=== PATIENT | male | born 1945 | race African-American/Black ===

== ENCOUNTER 2018-06-16 03:25 | Emergency (ER) | payer OTHER ==
[~2018-06-16] VITALS: Ht 177.8 cm; Wt 109.0 kg
[~2018-06-16 03:25] MED LIST: ATEN-42; ATOR80TA; CLOP75TA16; HYDR25TA; LISI40TA4; LISINOPRIL; NOVALIN; NVLG73; PENT400T29; PLAVIX; SIMVASTATIN
[2018-06-16] MEDS ORDERED: DEXT 10% WATER 1,000 ML IV ONE (04:36)
[2018-06-16] MEDS ORDERED: DEXTROSE 50% WATER 50ML SYRINGE IV ONE (04:45)
[2018-06-16 05:00] LABS: BASOPHILS % 0.9 % (0.0-2.0); EOSINOPHILS % 1.5 % (0.0-5.0); HEMATOCRIT. 34.8 % (42.0-52.0); HEMOGLOBIN. 11.2 g/dL (14.0-18.0); LYMPHOCYTES % 12.5 % (20.0-50.0); MEAN CORPUSCULAR HEMOGLOBIN 31.4 pg (28.0-32.0); MEAN CORPUSCULAR VOLUME 97.8 fL (80.0-94.0); MEAN PLATELET VOLUME 8.3 fl (7.4-10.4); MONOCYTES % 7.8 % (2.0-8.0); NEUTROPHILS % 77.3 % (40.0-76.0); PLATELET 163 x1000/uL (130-400); RED BLOOD CELL COUNT 3.56 mill/uL (4.7-6.1); RED CELL DISTRIBUTION WIDTH 14.3 % (11.6-14.6)
[2018-06-16 05:24] LABS: PHOSPHORUS 3.5 mg/dL (2.5-4.9)
[2018-06-16 08:35] VITALS: BP 198/74
== END 2018-06-16 06:56 | disposition home or self-care (01) ==
LOC: ER 03:25
DX: E11.649 Type 2 diabetes mellitus with hypoglycemia without coma (principal); Z79.4 Long term (current) use of insulin
CPT/HCPCS: 36415; 80048; 82962; 83735; 84100; 96374; 99283

== ENCOUNTER 2019-05-11 21:52 | Emergency (ER) | payer OTHER ==
[~2019-05-11] VITALS: Ht 175.3 cm; Wt 109.0 kg
[~2019-05-11 21:52] MED LIST changes: -CLOP75TA16; +CLOP75TA4
[2019-05-11] MEDS ORDERED: DEXTROSE 50% WATER 50ML SYRINGE IV ONE (22:26)
[2019-05-11] MEDS: DEXTROSE 50% WATER 50ML SYRINGE IV ONE (23:02)
[2019-05-11] MEDS: SODIUM CHLORIDE 0.9% 1,000 ML IV ONE (23:11)
[2019-05-12 00:22] LABS: BASOPHILS % 0.7 % (0.0-2.0); EOSINOPHILS % 1.1 % (0.0-5.0); HEMATOCRIT. 37.5 % (42.0-52.0); HEMOGLOBIN. 12.4 g/dL (14.0-18.0); LYMPHOCYTES % 8.7 % (20.0-50.0); MEAN CORPUSCULAR HEMOGLOBIN 31.5 pg (28.0-32.0); MEAN CORPUSCULAR VOLUME 95.3 fL (80.0-94.0); MEAN PLATELET VOLUME 8.5 fl (7.4-10.4); NEUTROPHILS % 83.5 % (40.0-76.0); PLATELET 157 x1000/uL (130-400); RED BLOOD CELL COUNT 3.93 mill/uL (4.7-6.1)
[2019-05-12 00:31] LABS: CHLORIDE 109 mEq/L (98-107)
[2019-05-12 04:13] VITALS: BP 150/68
== END 2019-05-12 04:16 | disposition home or self-care (01) ==
LOC: ER 21:52
DX: E11.649 Type 2 diabetes mellitus with hypoglycemia without coma (principal); E78.00 Pure hypercholesterolemia, unspecified; I10 Essential (primary) hypertension; Z86.73 Personal history of transient ischemic attack (TIA), and cerebral infarction without residual deficits; Z79.4 Long term (current) use of insulin; Z79.899 Other long term (current) drug therapy
CPT/HCPCS: 36415; 71045; 80053; 82962; 83880; 84484; 85025; 93005; 96360; 96361; 99284; J7030

== ENCOUNTER 2021-05-13 06:41 | Emergency (ER) | payer OTHER ==
[~2021-05-13] VITALS: Ht 180.3 cm; Wt 82.0 kg
[~2021-05-13 06:41] MED LIST changes: +CLOP-31; -CLOP75TA4; +LISI40TA13; -LISI40TA4
[2021-05-13 09:51] LABS: HEMATOCRIT. 37.6 % (42.0-52.0); HEMOGLOBIN. 12.3 g/dL (14.0-18.0); MEAN CORPUSCULAR HEMOGLOBIN 31.3 pg (28.0-32.0); MEAN CORPUSCULAR VOLUME 95.6 fL (80.0-94.0); MEAN PLATELET VOLUME 8.4 fl (7.4-10.4); PLATELET 111 x1000/uL (130-400); RED BLOOD CELL COUNT 3.93 mill/uL (4.7-6.1); RED CELL DISTRIBUTION WIDTH 14.2 % (11.6-14.6)
[2021-05-13] MEDS ORDERED: ACETAMINOPHEN 325MG TABLET PO ONE (10:15)
[2021-05-13 10:52] LABS: CHLORIDE 109 mEq/L (98-107)
[2021-05-13 11:40] LABS: PLATELET ESTIMATE SLIGHTLY DECREASED
[2021-05-13] MEDS ORDERED: CEFTRIAXONE 1 G PREMIX 50 ML IV ONE (13:30)
[2021-05-13] MEDS ORDERED: AZITHROMYCIN 500 MG in DEXT 5% WATER 250 ML IV SCH (13:30)
[2021-05-13 15:04] VITALS: BP 152/77
== END 2021-05-13 16:15 | disposition short-term general hospital (02) ==
LOC: ER 06:41
DX: U07.1 COVID-19 (principal); N17.9 Acute kidney failure, unspecified; R53.1 Weakness; E78.00 Pure hypercholesterolemia, unspecified; I10 Essential (primary) hypertension; E11.9 Type 2 diabetes mellitus without complications; Z79.899 Other long term (current) drug therapy
CPT/HCPCS: 36415; 71045; 80053; 83880; 84484; 85025; 87426; 93005; 96365; 96366; 96368; 99285; J0456; J0696; J7060

== ENCOUNTER 2021-05-25 05:47 | Emergency (ER) | payer OTHER ==
[~2021-05-25] VITALS: Ht 177.8 cm; Wt 100.0 kg
[2021-05-25] MEDS ORDERED: SODIUM CHLORIDE 0.9% 1,000 ML IV ONE (07:30)
[2021-05-25 08:35] LABS: HEMATOCRIT. 35.3 % (42.0-52.0); HEMOGLOBIN. 11.7 g/dL (14.0-18.0); MEAN CORPUSCULAR HEMOGLOBIN 31.4 pg (28.0-32.0); MEAN CORPUSCULAR VOLUME 94.5 fL (80.0-94.0); MEAN PLATELET VOLUME 8.8 fl (7.4-10.4); PLATELET 164 x1000/uL (130-400); RED BLOOD CELL COUNT 3.74 mill/uL (4.7-6.1); RED CELL DISTRIBUTION WIDTH 13.9 % (11.6-14.6)
[2021-05-25 08:40] LABS: CHLORIDE 97 mEq/L (98-107)
[2021-05-25 08:47] LABS: BETA HYDROXYBUTYRATE 0.3 mMol/L (0.0-0.3)
[2021-05-25] MEDS ORDERED: INSULIN REGULAR (HUMULIN R) 300UNITS/3ML VIAL IV ONE (10:30)
[2021-05-25 10:32] LABS: PLATELET ESTIMATE NORMAL
[2021-05-25] MEDS ORDERED: NIFEDIPINE 10MG CAPSULE PO ONE (11:45)
[2021-05-25 12:01] LABS: CLARITY URINE CLEAR (CLEAR); COLOR URINE YELLOW (YELLOW); KETONES URINE NEGATIVE (NEGATIVE); LEUKOCYTE ESTERASE URINE 1+ (NEGATIVE); NITRITE URINE POSITIVE (NEGATIVE); OCCULT BLOOD URINE 1+ (NEGATIVE); PH URINE 5.5 (4.5-8.0); PROTEIN URINE 1+ (NEGATIVE); SPECIFIC GRAVITY URINE 1.014 (1.005-1.030); UROBILINOGEN URINE 0.2 E.U./dL (0.2-1.0)
[2021-05-25] MEDS ORDERED: CIPR-263 MT (13:50)
[2021-05-25] MEDS ORDERED: LEVOFLOXACIN 500MG TABLET PO ONE (14:00)
[2021-05-25 19:12] VITALS: BP 139/61
== END 2021-05-25 19:13 | disposition home or self-care (01) ==
LOC: ER 05:56
DX: R53.1 Weakness (principal); E11.9 Type 2 diabetes mellitus without complications; Z79.899 Other long term (current) drug therapy
CPT/HCPCS: 36415; 71045; 80053; 81003; 82010; 82962; 84484; 85025; 87077; 87086; 87186; 93005; 96361; 96374; 99285; J1815; J7030

== ENCOUNTER 2021-08-26 17:26 | Emergency (ER) | payer OTHER ==
[~2021-08-26] VITALS: Ht 175.3 cm; Wt 91.0 kg
[~2021-08-26 17:26] MED LIST changes: +CIPR-263 MT
[2021-08-26] MEDS ORDERED: MORPHINE SULFATE 4 MG/ML CPJ (NOT FOR IM USE) IV STA (17:55)
[2021-08-26] MEDS ORDERED: ONDANSETRON HCL 4MG/2ML INJ IV STA (17:55)
[2021-08-26] MEDS ORDERED: SODIUM CHLORIDE 0.9% 1,000 ML IV ONE (18:00)
[2021-08-26 18:28] LABS: BASOPHILS % 0.7 % (0.0-2.0); EOSINOPHILS % 2.9 % (0.0-5.0); HEMATOCRIT. 39.5 % (42.0-52.0); HEMOGLOBIN. 12.9 g/dL (14.0-18.0); LYMPHOCYTES % 18.2 % (20.0-50.0); MEAN CORPUSCULAR VOLUME 95.1 fL (80.0-94.0); MEAN PLATELET VOLUME 8.5 fl (7.4-10.4); MONOCYTES % 8.1 % (2.0-8.0); NEUTROPHILS % 70.1 % (40.0-76.0); PLATELET 177 x1000/uL (130-400); RED BLOOD CELL COUNT 4.16 mill/uL (4.7-6.1); RED CELL DISTRIBUTION WIDTH 13.8 % (11.6-14.6)
[2021-08-26 18:39] LABS: CHLORIDE 107 mEq/L (98-107)
[2021-08-26 18:40] LABS: PROTHROMBIN TIME 10.5 sec (9.6-11.0)
[2021-08-26] MEDS ORDERED: CLONIDINE 0.1MG TABLET PO ONE (22:15)
[2021-08-26] MEDS ORDERED: MORPHINE SULFATE 4 MG/ML CPJ (NOT FOR IM USE) IV ONE (23:30)
[2021-08-27] MEDS ORDERED: MORPHINE SULFATE 4 MG/ML CPJ (NOT FOR IM USE) IV ONE (05:45)
[2021-08-27] MEDS ORDERED: LISINOPRIL 40MG TABLET PO SCH (06:00)
[2021-08-27 06:30] VITALS: BP 193/82
== END 2021-08-27 04:13 | disposition short-term general hospital (02) ==
LOC: ER 17:26
DX: S72.091A Other fracture of head and neck of right femur, initial encounter for closed fracture (principal); N28.9 Disorder of kidney and ureter, unspecified; I10 Essential (primary) hypertension; E11.9 Type 2 diabetes mellitus without complications; Z20.822 Contact with and (suspected) exposure to COVID-19; W01.0XXA Fall on same level from slipping, tripping and stumbling without subsequent striking against object, initial encounter; Y93.01 Activity, walking, marching and hiking; Y92.018 Other place in single-family (private) house as the place of occurrence of the external cause; Z86.73 Personal history of transient ischemic attack (TIA), and cerebral infarction without residual deficits
CPT/HCPCS: 36415; 71045; 73502; 80053; 82962; 85025; 85610; 86850; 86900; 86901; 87426; 93005; 96374; 96376; 99291; J2270; J7030; J2405; A4315

== ENCOUNTER 2021-09-27 06:59 | Emergency (ER) | payer OTHER ==
[~2021-09-27] VITALS: Ht 188 cm; Wt 91.0 kg
[2021-09-27] MEDS ORDERED: MORPHINE SULFATE 10 MG/ML CPJ IM ONE (07:45)
[2021-09-27] MEDS ORDERED: MORPHINE SULFATE 10 MG/ML CPJ IM NR (10:30)
[2021-09-27 11:16] LABS: BASOPHILS % 0.8 % (0.0-2.0); EOSINOPHILS % 4.5 % (0.0-5.0); HEMATOCRIT. 32.7 % (42.0-52.0); HEMOGLOBIN. 10.5 g/dL (14.0-18.0); LYMPHOCYTES % 18.6 % (20.0-50.0); MEAN CORPUSCULAR HEMOGLOBIN 30.9 pg (28.0-32.0); MEAN CORPUSCULAR VOLUME 96.1 fL (80.0-94.0); MEAN PLATELET VOLUME 8.2 fl (7.4-10.4); MONOCYTES % 7.2 % (2.0-8.0); NEUTROPHILS % 68.9 % (40.0-76.0); PLATELET 193 x1000/uL (130-400)
[2021-09-27 11:21] LABS: CHLORIDE 107 mEq/L (98-107)
[2021-09-27] MEDS ORDERED: INSULIN REGULAR (HUMULIN R) 300UNITS/3ML VIAL IV ONE (12:45)
[2021-09-27] MEDS ORDERED: SODIUM CHLORIDE 0.9% 1,000 ML IV ONE (12:45)
[2021-09-27] MEDS ORDERED: DEXTROSE 50% WATER 50ML SYRINGE IV ONE (12:45)
[2021-09-27] MEDS ORDERED: CALCIUM GLUCONATE 1,000 MG in DEXT 5% WATER 100 ML IV ONE (12:45)
[2021-09-27] MEDS ORDERED: SODIUM POLYSTYRENE SULFONATE 15 G/60 ML BOT PO ONE (12:45)
[2021-09-27] MEDS: CALCIUM GLUCONATE 1GM PREMIX 50 ML IV NR ×2 (13:24→13:33)
[2021-09-27 20:00] VITALS: BP 186/51
== END 2021-09-27 20:50 | disposition short-term general hospital (02) ==
LOC: ER 06:59
DX: N28.9 Disorder of kidney and ureter, unspecified (principal); E86.0 Dehydration; I10 Essential (primary) hypertension; G89.29 Other chronic pain; M25.551 Pain in right hip; Z20.822 Contact with and (suspected) exposure to COVID-19; E11.9 Type 2 diabetes mellitus without complications; Z98.890 Other specified postprocedural states; Z86.73 Personal history of transient ischemic attack (TIA), and cerebral infarction without residual deficits; Z79.899 Other long term (current) drug therapy; Z79.4 Long term (current) use of insulin
CPT/HCPCS: 36415; 73502; 80048; 80053; 82962; 85025; 87426; 93005; 96361; 96372; 96374; 96375; 99285; C9803; J0610; J1815; J2270; J7030; J7060

== ENCOUNTER 2022-01-17 11:26 | Emergency (ER) | payer OTHER ==
[~2022-01-17] VITALS: Ht 182.9 cm; Wt 95.0 kg
[2022-01-17] MEDS: AMPICILLIN SOD/SULBACTAM NA 3 G in SODIUM CHLORIDE 0.9% 100 ML IV SCH ×2 (12:50→19:31)
[2022-01-17 12:55] LABS: BASOPHILS % 0.7 % (0.0-2.0); EOSINOPHILS % 3.1 % (0.0-5.0); HEMOGLOBIN. 9.9 g/dL (14.0-18.0); LYMPHOCYTES % 16.3 % (20.0-50.0); MEAN CORPUSCULAR HEMOGLOBIN 30.3 pg (28.0-32.0); MEAN PLATELET VOLUME 7.6 fl (7.4-10.4); MONOCYTES % 6.7 % (2.0-8.0); NEUTROPHILS % 73.2 % (40.0-76.0); PLATELET 254 x1000/uL (130-400); RED BLOOD CELL COUNT 3.26 mill/uL (4.7-6.1); RED CELL DISTRIBUTION WIDTH 15.6 % (11.6-14.6)
[2022-01-17 13:00] LABS: CHLORIDE 104 mEq/L (98-107)
[2022-01-17 19:00] VITALS: BP 144/94
== END 2022-01-17 21:11 | disposition short-term general hospital (02) ==
LOC: ER 11:26
DX: L97.429 Non-pressure chronic ulcer of left heel and midfoot with unspecified severity (principal); I73.9 Peripheral vascular disease, unspecified; E11.65 Type 2 diabetes mellitus with hyperglycemia; I10 Essential (primary) hypertension; Z86.73 Personal history of transient ischemic attack (TIA), and cerebral infarction without residual deficits; Z79.899 Other long term (current) drug therapy; Z20.822 Contact with and (suspected) exposure to COVID-19
CPT/HCPCS: 36415; 73620; 80053; 83605; 85025; 87426; 96365; 99285; C9803; J0295; J7050

== ENCOUNTER 2022-04-03 07:49 | Inpatient (IN) | payer OTHER ==
[~2022-04-03] VITALS: Ht 177.8 cm; Wt 86.3 kg
[2022-04-03] MEDS ORDERED: SODIUM CHLORIDE 0.9% 1,000 ML IV ONE ×2 (08:15→12:15)
[2022-04-03 09:29] LABS: CHLORIDE 104 mEq/L (98-107); HEMATOCRIT. 30.6 % (42.0-52.0); HEMOGLOBIN. 9.7 g/dL (14.0-18.0); MEAN CORPUSCULAR HEMOGLOBIN 29.9 pg (28.0-32.0); MEAN CORPUSCULAR VOLUME 94.1 fL (80.0-94.0); MEAN PLATELET VOLUME 7.6 fl (7.4-10.4); PLATELET 254 x1000/uL (130-400); RED BLOOD CELL COUNT 3.25 mill/uL (4.7-6.1); RED CELL DISTRIBUTION WIDTH 16.3 % (11.6-14.6)
[2022-04-03 09:41] LABS: BETA HYDROXYBUTYRATE 0.2 mMol/L (0.0-0.3)
[2022-04-03 12:02] LABS: PLATELET ESTIMATE NORMAL
[2022-04-03] MEDS ORDERED: INSULIN REGULAR (HUMULIN R) 300UNITS/3ML VIAL IV ONE (12:15)
[2022-04-03] MEDS ORDERED: INSULIN REGULAR (HUMULIN R) 300UNITS/3ML VIAL SUBCUT ONE (12:15)
[2022-04-03] MEDS ORDERED: AZITHROMYCIN 500MG/250ML 250 ML IV ONE (12:30)
[2022-04-03] MEDS ORDERED: CEFTRIAXONE 1 G PREMIX 50 ML IV ONE (12:30)
[2022-04-03] MEDS ORDERED: SODIUM BICARBONATE 8.4% 1 MEQ/ML 50ML SYR IV NR (14:15)
[2022-04-03 15:25] LABS: INR 2.1; PROTHROMBIN TIME 21.6 sec (9.6-11.0)
[2022-04-03] MEDS ORDERED: CALCIUM GLUCONATE 100MG/ML 10ML VIAL IV NR (15:30)
[2022-04-03 21:20] LABS: CLARITY URINE CLEAR (CLEAR); COLOR URINE YELLOW (YELLOW); KETONES URINE NEGATIVE (NEGATIVE); LEUKOCYTE ESTERASE URINE 1+ (NEGATIVE); NITRITE URINE NEGATIVE (NEGATIVE); OCCULT BLOOD URINE 1+ (NEGATIVE); PH URINE 5.5 (4.5-8.0); PROTEIN URINE 2+ (NEGATIVE); SPECIFIC GRAVITY URINE 1.014 (1.005-1.030); UROBILINOGEN URINE 0.2 E.U./dL (0.2-1.0)
[2022-04-03] MEDS ORDERED: CLONIDINE 0.1MG TABLET PO PRN (21:30)
[2022-04-03] MEDS ORDERED: ZOLPIDEM TARTRATE 5MG TABLET PO PRN (21:30)
[2022-04-03] MEDS ORDERED: GUAIFENESIN 200MG/10ML SUGAR FREE UDC PO PRN (21:30)
[2022-04-03] MEDS ORDERED: ENOXAPARIN 40MG/0.4ML SYR SUBCUT SCH (21:30)
[2022-04-03] MEDS ORDERED: MAGNESIUM/ALUMINUM HYDROXIDE/SIMETHICONE 30ML UDC PO PRN (21:30)
[2022-04-03] MEDS ORDERED: ACETAMINOPHEN 325MG TABLET PO PRN ×2 (21:30)
[2022-04-03] MEDS ORDERED: LEVOFLOXACIN 500MG PREMIX 100 ML IV SCH (21:30)
[2022-04-03] MEDS ORDERED: IPRATROPIUM/ALBUTEROL 0.5-3(2.5)MG/3ML NEB NEB PRN (21:30)
[2022-04-03] MEDS ORDERED: ONDANSETRON HCL 4MG/2ML INJ IV PRN (21:30)
[2022-04-03] MEDS ORDERED: DEXTROSE 50% WATER 50ML SYRINGE IV PRN (21:30)
[2022-04-03] MEDS ORDERED: KETOROLAC 15MG/ML VIAL IV PRN (21:30)
[2022-04-03] MEDS ORDERED: SODIUM CHLORIDE 0.9% 1000ML BAG (SEPSIS BOLUS) IV NR (21:30)
[2022-04-03] MEDS ORDERED: DOCUSATE SODIUM 100MG CAPSULE PO PRN (21:30)
[2022-04-03] MEDS ORDERED: NITROGLYCERIN 0.4MG TABLET SL SL PRN (21:30)
[2022-04-03] MEDS ORDERED: TRAMADOL 50MG TABLET PO PRN (22:00)
[2022-04-03 22:15] LABS: T4 FREE 1.44 ng/dL (0.76-1.46)
[2022-04-03 22:50] LABS: FOLIC ACID (FOLATE) SERUM >20 ng/mL ng/mL (>5.38); VITAMIN B12 SERUM 434 pg/mL (211-911)
[2022-04-03 23:23] LABS: CREATINE KINASE 593 IU/L (39-308); CREATINE KINASE MB FRACTION 9.4 ng/mL (0.5-3.6)
[2022-04-04] MEDS: INSULIN GLARGINE 100 UNITS/ML SUBCUT SCH ×2 (00:18→22:15)
[2022-04-04 02:00] VITALS: BP 156/75
[2022-04-04 08:00] VITALS: BP 138/83
[2022-04-04] MEDS: BLOOD SUGAR DIAGNOSTIC STRIP TEST SCH ×4 (08:35→21:24)
[2022-04-04] MEDS: HYDROCHLOROTHIAZIDE 25MG TABLET PO SCH (08:58)
[2022-04-04] MEDS: ATENOLOL 25MG TABLET PO SCH (08:58)
[2022-04-04] MEDS: INSULIN LISPRO 100 UNITS/ML SUBCUT SCH ×4 (08:59→22:14)
[2022-04-04] MEDS ORDERED: FAMOTIDINE 20MG TABLET PO SCH (09:00)
[2022-04-04] MEDS ORDERED: ASPIRIN 325MG EC TABLET PO SCH (09:00)
[2022-04-04] MEDS ORDERED: SODIUM POLYSTYRENE SULFONATE 15 G/60 ML BOT PO NR (09:45)
[2022-04-04] MEDS ORDERED: LEVOFLOXACIN 750MG PREMIX 150 ML IV SCH (11:00)
[2022-04-04 11:19] LABS: *AMPHETAMINES SCREEN URINE NEGATIVE (NEGATIVE); *BARBITURATES SCREEN URINE NEGATIVE (NEGATIVE); *BENZODIAZEPINES SCREEN URINE NEGATIVE (NEGATIVE); *COCAINE SCREEN URINE NEGATIVE (NEGATIVE); CANNABINOID URINE SCREEN NEGATIVE (NEGATIVE); METHADONE URINE SCREEN NEGATIVE (NEGATIVE); OPIATES URINE SCREEN NEGATIVE (NEGATIVE); PHENCYCLIDINE URINE SCREEN NEGATIVE (NEGATIVE)
[2022-04-04] MEDS: PENTOXIFYLLINE 400MG TABLET PO SCH (11:19)
[2022-04-04] MEDS ORDERED: NALOXONE HCL 0.4MG/ML VIAL IV PRN (11:45)
[2022-04-04] MEDS ORDERED: ENOXAPARIN 40MG/0.4ML SYR SUBCUT SCH (11:45)
[2022-04-04 12:00] VITALS: BP 125/69
[2022-04-04 12:37] LABS: HEMATOCRIT. 30.2 % (42.0-52.0); HEMOGLOBIN. 9.5 g/dL (14.0-18.0); MEAN CORPUSCULAR HEMOGLOBIN 29.9 pg (28.0-32.0); MEAN CORPUSCULAR VOLUME 94.7 fL (80.0-94.0); MEAN PLATELET VOLUME 7.9 fl (7.4-10.4); PLATELET 260 x1000/uL (130-400); RED BLOOD CELL COUNT 3.19 mill/uL (4.7-6.1); RED CELL DISTRIBUTION WIDTH 16.1 % (11.6-14.6)
[2022-04-04 13:09] LABS: CHLORIDE 106 mEq/L (98-107)
[2022-04-04] MEDS ORDERED: FLUCONAZOLE 150MG TABLET PO NR (14:00)
[2022-04-04 14:09] LABS: CREATINE KINASE 1152 IU/L (39-308); CREATINE KINASE MB FRACTION 15.8 ng/mL (0.5-3.6); PHOSPHORUS 2.6 mg/dL (2.5-4.9)
[2022-04-04] MEDS ORDERED: HEPARIN 25,000 UNITS PREMIX 250 ML IV PRN (15:45)
[2022-04-04] MEDS ORDERED: HEPARIN 5000 UNITS/ML VIAL IV PRN ×2 (15:45)
[2022-04-04] MEDS ORDERED: HEPARIN 5000 UNITS/ML VIAL IV SCH (15:45)
[2022-04-04 16:00] VITALS: BP 105/68
[2022-04-04] MEDS ORDERED: WARF4TAB71 PO ×2 (16:39→16:59)
[2022-04-04] MEDS ORDERED: LISI-186 PO (16:40)
[2022-04-04] MEDS ORDERED: FURO20TA4 PO (16:41)
[2022-04-04] MEDS ORDERED: LINA5TAB PO (16:41)
[2022-04-04] MEDS ORDERED: BISO5TAB13 PO (16:42)
[2022-04-04] MEDS ORDERED: ATOR-2 PO (16:45)
[2022-04-04] MEDS ORDERED: CLOP-31 PO (16:46)
[2022-04-04 16:50] LABS: INR 2.9; PARTIAL THROMBOPLASTIN TIME 64.3 sec (23.4-31.0); PROTHROMBIN TIME 28.7 sec (9.6-11.0)
[2022-04-04 17:07] LABS: HEMATOCRIT. 26.7 % (42.0-52.0); HEMOGLOBIN. 8.5 g/dL (14.0-18.0); MEAN CORPUSCULAR HEMOGLOBIN 29.6 pg (28.0-32.0); MEAN CORPUSCULAR VOLUME 92.5 fL (80.0-94.0); MEAN PLATELET VOLUME 8.2 fl (7.4-10.4); PLATELET 251 x1000/uL (130-400); RED BLOOD CELL COUNT 2.89 mill/uL (4.7-6.1)
[2022-04-04 17:48] VITALS: BP 105/68
[2022-04-04] MEDS ORDERED: LISINOPRIL 40MG TABLET PO SCH (18:00)
[2022-04-04 20:00] VITALS: BP 133/94
[2022-04-04] MEDS ORDERED: LEVOFLOXACIN 250MG PREMIX 50 ML IV SCH (20:00)
[2022-04-04] MEDS ORDERED: ATORVASTATIN CALCIUM 40MG TABLET PO SCH (21:00)
[2022-04-04] MEDS ORDERED: CLOPIDOGREL 75MG TABLET PO SCH (21:00)
[2022-04-05 00:17] LABS: PLATELET ESTIMATE NORMAL
[2022-04-05 00:23] VITALS: BP 140/47
[2022-04-05 04:00] VITALS: BP 138/58
[2022-04-05 07:13] LABS: BASOPHILS % 0.5 % (0.0-2.0); EOSINOPHILS % 2.1 % (0.0-5.0); HEMATOCRIT. 27.2 % (42.0-52.0); HEMOGLOBIN. 8.8 g/dL (14.0-18.0); LYMPHOCYTES % 9.3 % (20.0-50.0); MEAN CORPUSCULAR HEMOGLOBIN 29.9 pg (28.0-32.0); MEAN CORPUSCULAR VOLUME 93.1 fL (80.0-94.0); MEAN PLATELET VOLUME 7.8 fl (7.4-10.4); MONOCYTES % 9.3 % (2.0-8.0); NEUTROPHILS % 78.8 % (40.0-76.0); PLATELET 247 x1000/uL (130-400); RED BLOOD CELL COUNT 2.93 mill/uL (4.7-6.1); RED CELL DISTRIBUTION WIDTH 15.9 % (11.6-14.6)
[2022-04-05 07:26] LABS: INR 2.9; PROTHROMBIN TIME 28.2 sec (9.6-11.0)
[2022-04-05] MEDS: BLOOD SUGAR DIAGNOSTIC STRIP TEST SCH ×2 (07:40→13:22)
[2022-04-05 07:51] LABS: PHOSPHORUS 3.4 mg/dL (2.5-4.9)
[2022-04-05 08:02] VITALS: BP 133/48
[2022-04-05] MEDS: INSULIN LISPRO 100 UNITS/ML SUBCUT SCH ×2 (08:10→13:22)
[2022-04-05] MEDS ORDERED: ASPIRIN 81MG EC TABLET PO SCH (09:00)
[2022-04-05] MEDS ORDERED: FAMOTIDINE 20MG TABLET PO SCH (09:00)
[2022-04-05] MEDS: HYDROCHLOROTHIAZIDE 25MG TABLET PO SCH (09:46)
[2022-04-05] MEDS: ATENOLOL 25MG TABLET PO SCH (09:50)
[2022-04-05] MEDS: PENTOXIFYLLINE 400MG TABLET PO SCH (09:50)
[2022-04-05 12:06] VITALS: BP 129/94
[2022-04-05 16:04] VITALS: BP 122/88
[2022-04-05 16:33] VITALS: BP 122/88
[2022-04-05 17:43] LABS: PLATELET ESTIMATE NORMAL
[2022-04-05] MEDS ORDERED: WARFARIN SODIUM 3MG TABLET PO NR (18:00)
[2022-04-06] MEDS ORDERED: LEVOFLOXACIN 250MG TABLET PO SCH (11:00)
== END 2022-04-05 18:40 | disposition short-term general hospital (02) | DRG 871 ==
LOC: ER 08:02 → MICUSO 21:15 → EDBEDREQ 21:23 → 7WST 04-04 02:28
PROVIDERS: ADMIT Internal Medicine; ATTEND Internal Medicine
DX: A41.9 Sepsis, unspecified organism (principal); I21.A1 Myocardial infarction type 2; J18.9 Pneumonia, unspecified organism; E87.1 Hypo-osmolality and hyponatremia; N17.9 Acute kidney failure, unspecified; I69.351 Hemiplegia and hemiparesis following cerebral infarction affecting right dominant side; L03.116 Cellulitis of left lower limb; L03.115 Cellulitis of right lower limb; L97.519 Non-pressure chronic ulcer of other part of right foot with unspecified severity; L97.529 Non-pressure chronic ulcer of other part of left foot with unspecified severity; E11.22 Type 2 diabetes mellitus with diabetic chronic kidney disease; E11.621 Type 2 diabetes mellitus with foot ulcer; E86.0 Dehydration; I12.9 Hypertensive chronic kidney disease with stage 1 through stage 4 chronic kidney disease, or unspecified chronic kidney disease; Z20.822 Contact with and (suspected) exposure to COVID-19; E87.5 Hyperkalemia; D63.1 Anemia in chronic kidney disease; E11.65 Type 2 diabetes mellitus with hyperglycemia; N18.9 Chronic kidney disease, unspecified; Z79.4 Long term (current) use of insulin; Z79.82 Long term (current) use of aspirin; Z82.49 Family history of ischemic heart disease and other diseases of the circulatory system
CPT/HCPCS: 36415; 71045; 80048; 80053; 80061; 80305; 81003; 82010; 82550; 82553; 82607; 82746; 82962; 83036; 83540; 83550; 83605; 83735; 83880; 84100; 84145; 84439; 84443; 84484; 85025; 87426; 93005; 93306; 93970; 99291; C1893; J0456; J0610; J0696; J1650; J1815; J1956; J3490; J7030

== ENCOUNTER 2022-05-22 17:48 | Inpatient (IN) | payer MEDICARE, OTHER ==
[~2022-05-22] VITALS: Ht 172.7 cm; Wt 80.4 kg
[~2022-05-22 17:48] MED LIST changes: -ATEN-42; +ATOR-2 PO; -ATOR80TA; +BISO5TAB13 PO; -CLOP-31; +CLOP-31 PO; +FURO20TA4 PO; -HYDR25TA; +LINA5TAB PO; +LISI-186 PO; -LISI40TA13; -LISINOPRIL; -NOVALIN; -PENT400T29; -PLAVIX; -SIMVASTATIN; +WARF4TAB71 PO
[2022-05-22] MEDS ORDERED: SODIUM CHLORIDE 0.9% 1,000 ML IV ONE (18:00)
[2022-05-22 18:35] LABS: BASOPHILS % 0.4 % (0.0-2.0); EOSINOPHILS % 0.4 % (0.0-5.0); HEMATOCRIT. 37.2 % (42.0-52.0); HEMOGLOBIN. 11.8 g/dL (14.0-18.0); LYMPHOCYTES % 7.9 % (20.0-50.0); MEAN CORPUSCULAR HEMOGLOBIN 29.4 pg (28.0-32.0); MEAN CORPUSCULAR VOLUME 92.7 fL (80.0-94.0); MEAN PLATELET VOLUME 7.4 fl (7.4-10.4); MONOCYTES % 6.6 % (2.0-8.0); NEUTROPHILS % 84.7 % (40.0-76.0); PLATELET 326 x1000/uL (130-400); RED BLOOD CELL COUNT 4.01 mill/uL (4.7-6.1); RED CELL DISTRIBUTION WIDTH 18.5 % (11.6-14.6)
[2022-05-22 19:04] LABS: CHLORIDE 105 mEq/L (98-107)
[2022-05-22 19:14] LABS: BETA HYDROXYBUTYRATE 0.8 mMol/L (0.0-0.3); ETHANOL BLOOD < 10 mg/dL
[2022-05-22] MEDS ORDERED: FUROSEMIDE 100MG/10ML VIAL IV STA (20:23)
[2022-05-22] MEDS ORDERED: CALCIUM CHLORIDE 1GM/10ML SYR IV ONE (20:30)
[2022-05-22] MEDS ORDERED: ALBUTEROL (0.083%) 2.5MG/3ML NEB HHN ONE (20:30)
[2022-05-22] MEDS ORDERED: DEXTROSE 50% WATER 50ML SYRINGE IV ONE (20:30)
[2022-05-22] MEDS ORDERED: INSULIN REGULAR (HUMULIN R) 300UNITS/3ML VIAL IV ONE (20:30)
[2022-05-22] MEDS ORDERED: SODIUM BICARBONATE 8.4% 1 MEQ/ML 50ML SYR IV ONE (20:30)
[2022-05-23] MEDS: ACETYLCYSTEINE 100MG/ML 10% VIAL 4ML INH SCH ×2 (00:47→22:00)
[2022-05-23] MEDS: PIPERACILLIN/TAZ 3.375G PREMIX 50 ML IV SCH ×2 (00:50→17:28)
[2022-05-23] MEDS ORDERED: ALBUTEROL (0.083%) 2.5MG/3ML NEB HHN NR (01:15)
[2022-05-23] MEDS ORDERED: FUROSEMIDE 100MG/10ML VIAL IV NR (01:30)
[2022-05-23] MEDS ORDERED: CALCIUM CHLORIDE 1GM/10ML SYR IV NR (01:30)
[2022-05-23] MEDS ORDERED: DEXTROSE 50% WATER 50ML SYRINGE IV NR (01:30)
[2022-05-23] MEDS ORDERED: SODIUM BICARBONATE 8.4% 1 MEQ/ML 50ML SYR IV NR (01:30)
[2022-05-23] MEDS ORDERED: INSULIN REGULAR (HUMULIN R) 300UNITS/3ML VIAL IV NR (01:30)
[2022-05-23] MEDS ORDERED: PHENYLEPHRINE 100 MG in DEXT 5% WATER 240 ML IV STA (04:10)
[2022-05-23] MEDS ORDERED: VANCOMYCIN 1G PREMIX 200 ML IV SCH (04:15)
[2022-05-23] MEDS ORDERED: CEFTRIAXONE 1 G PREMIX 50 ML IV ONE (04:15)
[2022-05-23] MEDS ORDERED: SODIUM POLYSTYRENE SULFONATE 15 G/60 ML BOT PO ONE (04:30)
[2022-05-23] MEDS ORDERED: CALCIUM CHLORIDE 1GM/10ML SYR IV ONE (04:30)
[2022-05-23] MEDS ORDERED: INSULIN REGULAR (HUMULIN R) 300UNITS/3ML VIAL IV ONE (04:30)
[2022-05-23] MEDS ORDERED: SODIUM BICARBONATE 8.4% 1 MEQ/ML 50ML SYR IV ONE (04:30)
[2022-05-23] MEDS ORDERED: ALBUTEROL (0.083%) 2.5MG/3ML NEB HHN ONE (04:30)
[2022-05-23] MEDS ORDERED: PHENYLEPHRINE 100 MG in DEXT 5% WATER 240 ML IV NR (04:45)
[2022-05-23] MEDS ORDERED: ACETAMINOPHEN 325MG TABLET PO PRN (12:00)
[2022-05-23] MEDS ORDERED: SODIUM CHLORIDE 0.9% 1,000 ML IV SCH (12:00)
[2022-05-23] MEDS ORDERED: PIPERACILLIN/TAZ 3.375G PREMIX 50 ML IV SCH (12:00)
[2022-05-23] MEDS ORDERED: ONDANSETRON HCL 4MG/2ML INJ IV PRN (12:00)
[2022-05-23 12:27] LABS: BG BASE EXCESS -7.5 mmol/L (-2.0-2.0); BG CARBOXYHEMOGLOBIN 0.2 % (0.5-1.5); BG DEOXYHEMOGLOBIN 3.6 % (0.0-5.0); BG HCO3 ACT 18.1 mmol/L (22.0-26.0); BG METHEMOGLOBIN 0.2 % (0.0-1.5); BG OXYGEN SATURATION 96.4 % (92.0-98.5); BG PCO2 37.2 mmHg (35.0-45.0); BG PH 7.306 (7.350-7.450); BG PO2 91.3 mmHg (75.0-100.0); BG SAMPLE SITE RIGHT RADIAL; BG VENT MODE NASAL CANNULA
[2022-05-23] MEDS: ENOXAPARIN 40MG/0.4ML SYR SUBCUT SCH (12:34)
[2022-05-23] MEDS ORDERED: SODIUM BICARBONATE 100 MEQ in DEXTROSE 5% WATER 1,000 ML IV SCH (13:00)
[2022-05-23] MEDS ORDERED: GUAIFENESIN 200MG/10ML SUGAR FREE UDC PO SCH (14:00)
[2022-05-23 14:36] LABS: HEMOGLOBIN. 9.8 g/dL (14.0-18.0); MEAN CORPUSCULAR HEMOGLOBIN 30.2 pg (28.0-32.0); MEAN CORPUSCULAR VOLUME 95.6 fL (80.0-94.0); MEAN PLATELET VOLUME 7.4 fl (7.4-10.4); PLATELET 356 x1000/uL (130-400); RED BLOOD CELL COUNT 3.24 mill/uL (4.7-6.1); RED CELL DISTRIBUTION WIDTH 18.8 % (11.6-14.6)
[2022-05-23 14:45] LABS: CHLORIDE 106 mEq/L (98-107)
[2022-05-23 14:54] LABS: CREATINE KINASE MB FRACTION 14.3 ng/mL (0.5-3.6)
[2022-05-23 15:05] LABS: PLATELET ESTIMATE NORMAL
[2022-05-23] MEDS ORDERED: AZITHROMYCIN 500 MG TABLET PO NR (16:45)
[2022-05-23] MEDS: GUAIFENESIN 200MG/10ML SUGAR FREE UDC PO SCH (18:13)
[2022-05-23 22:23] LABS: CREATINE KINASE MB FRACTION 10.6 ng/mL (0.5-3.6)
[2022-05-24] MEDS: INSULIN GLARGINE 100 UNITS/ML SUBCUT SCH (00:05)
[2022-05-24] MEDS: INSULIN LISPRO 100 UNITS/ML SUBCUT SCH ×5 (00:15→21:00)
[2022-05-24] MEDS ORDERED: DEXTROSE 50% WATER 50ML SYRINGE IV PRN (00:15)
[2022-05-24] MEDS: IPRATROPIUM/ALBUTEROL 0.5-3(2.5)MG/3ML NEB HHN SCH ×7 (00:49→22:30)
[2022-05-24] MEDS: PIPERACILLIN/TAZ 3.375G PREMIX 50 ML IV SCH ×4 (00:50→23:30)
[2022-05-24] MEDS: GUAIFENESIN 200MG/10ML SUGAR FREE UDC PO SCH ×4 (01:00→19:01)
[2022-05-24] MEDS ORDERED: INSULIN REGULAR (HUMULIN R) 300UNITS/3ML VIAL SUBCUT NR (01:15)
[2022-05-24] MEDS: SODIUM CHLORIDE 0.45% 1,000 ML IV SCH ×2 (06:11→16:04)
[2022-05-24] MEDS: BLOOD SUGAR DIAGNOSTIC STRIP TEST SCH ×4 (07:21→21:38)
[2022-05-24] MEDS: ACETYLCYSTEINE 100MG/ML 10% VIAL 4ML INH SCH ×3 (07:41→23:30)
[2022-05-24] MEDS: AZITHROMYCIN 500 MG TABLET PO SCH (09:30)
[2022-05-24] MEDS ORDERED: VANCOMYCIN 750MG PREMIX 150 ML IV NR (09:30)
[2022-05-24] MEDS: PANTOPRAZOLE SODIUM 40 MG/VIAL IV SCH (09:30)
[2022-05-24] MEDS: ENOXAPARIN 40MG/0.4ML SYR SUBCUT SCH (09:31)
[2022-05-24] MEDS ORDERED: VANCOMYCIN 750MG PREMIX 150 ML IV SCH (10:00)
[2022-05-24] MEDS ORDERED: PHENYLEPHRINE 100 MG in DEXT 5% WATER 240 ML IV PRN (11:15)
[2022-05-24 12:23] LABS: HEMATOCRIT. 29.3 % (42.0-52.0); HEMOGLOBIN. 9.3 g/dL (14.0-18.0); MEAN CORPUSCULAR HEMOGLOBIN 29.3 pg (28.0-32.0); MEAN CORPUSCULAR VOLUME 92.6 fL (80.0-94.0); MEAN PLATELET VOLUME 7.4 fl (7.4-10.4); PLATELET 268 x1000/uL (130-400); RED BLOOD CELL COUNT 3.16 mill/uL (4.7-6.1); RED CELL DISTRIBUTION WIDTH 18.5 % (11.6-14.6)
[2022-05-24 12:28] LABS: CHLORIDE 107 mEq/L (98-107)
[2022-05-24] MEDS ORDERED: INSULIN GLARGINE 100 UNITS/ML SUBCUT SCH (12:30)
[2022-05-24 13:56] LABS: PLATELET ESTIMATE NORMAL
[2022-05-24 18:22] LABS: CLARITY URINE TURBID (CLEAR); COLOR URINE YELLOW (YELLOW); PH URINE 5.5 (4.5-8.0); SPECIFIC GRAVITY URINE 1.021 (1.005-1.030)
[2022-05-24 18:23] LABS: KETONES URINE NEGATIVE (NEGATIVE); NITRITE URINE NEGATIVE (NEGATIVE); OCCULT BLOOD URINE 2+ (NEGATIVE); PROTEIN URINE TRACE (NEGATIVE); UROBILINOGEN URINE 0.2 E.U./dL (0.2-1.0)
[2022-05-24 18:24] LABS: LEUKOCYTE ESTERASE URINE 2+ (NEGATIVE)
[2022-05-24] MEDS: ATORVASTATIN CALCIUM 40MG TABLET PO SCH (23:30)
[2022-05-25] MEDS: ACETYLCYSTEINE 100MG/ML 10% VIAL 4ML INH SCH (00:31)
[2022-05-25] MEDS: SODIUM CHLORIDE 0.45% 1,000 ML IV SCH ×3 (01:15→22:20)
[2022-05-25] MEDS: IPRATROPIUM/ALBUTEROL 0.5-3(2.5)MG/3ML NEB HHN SCH ×2 (04:03→09:45)
[2022-05-25] MEDS: GUAIFENESIN 200MG/10ML SUGAR FREE UDC PO SCH ×4 (06:00→18:51)
[2022-05-25] MEDS: PIPERACILLIN/TAZ 3.375G PREMIX 50 ML IV SCH ×2 (06:00→18:52)
[2022-05-25] MEDS: BLOOD SUGAR DIAGNOSTIC STRIP TEST SCH ×4 (06:30→21:00)
[2022-05-25 06:39] LABS: HEMATOCRIT. 33.5 % (42.0-52.0); HEMOGLOBIN. 10.2 g/dL (14.0-18.0); MEAN CORPUSCULAR HEMOGLOBIN 29.6 pg (28.0-32.0); MEAN CORPUSCULAR VOLUME 97.7 fL (80.0-94.0); MEAN PLATELET VOLUME 7.2 fl (7.4-10.4); PLATELET 298 x1000/uL (130-400); RED BLOOD CELL COUNT 3.43 mill/uL (4.7-6.1); RED CELL DISTRIBUTION WIDTH 19.2 % (11.6-14.6)
[2022-05-25] MEDS: INSULIN LISPRO 100 UNITS/ML SUBCUT SCH ×5 (07:00→22:38)
[2022-05-25] MEDS ORDERED: LIDOCAINE HCL 1% 30ML VIAL (10MG/ML) ONE (07:47)
[2022-05-25 08:27] LABS: PLATELET ESTIMATE NORMAL
[2022-05-25] MEDS: MIDODRINE HCL 2.5MG TABLET PO SCH ×3 (09:00→18:51)
[2022-05-25] MEDS ORDERED: MIDODRINE HCL 5MG TABLET PO SCH (09:00)
[2022-05-25] MEDS: INSULIN GLARGINE 100 UNITS/ML SUBCUT SCH ×2 (09:09→22:38)
[2022-05-25] MEDS: PANTOPRAZOLE SODIUM 40 MG/VIAL IV SCH (09:34)
[2022-05-25] MEDS: CLOPIDOGREL 75MG TABLET PO SCH (09:34)
[2022-05-25] MEDS: ENOXAPARIN 40MG/0.4ML SYR SUBCUT SCH (09:46)
[2022-05-25] MEDS: AZITHROMYCIN 500 MG TABLET PO SCH (09:46)
[2022-05-25 11:06] LABS: BG BASE EXCESS -2.6 mmol/L (-2.0-2.0); BG CARBOXYHEMOGLOBIN 0.4 % (0.5-1.5); BG FRACTION INSPIRED OXYGEN 28; BG HCO3 ACT 22.4 mmol/L (22.0-26.0); BG METHEMOGLOBIN 0.5 % (0.0-1.5); BG OXYHEMOGLOBIN 97.1 % (94.0-97.0); BG PCO2 39.4 mmHg (35.0-45.0); BG PH 7.372 (7.350-7.450); BG PO2 104.4 mmHg (75.0-100.0); BG SAMPLE SITE RIGHT RADIAL; BG VENT MODE NASAL CANNULA
[2022-05-25 12:31] VITALS: BP 101/50
[2022-05-25] MEDS ORDERED: ENOXAPARIN 60MG/0.6ML SYR SUBCUT NR (12:45)
[2022-05-25 14:00] VITALS: BP_SYST 111; BP_SYST 117; BP_DIAS 57; BP_DIAS 59
[2022-05-25] MEDS ORDERED: FOLI-43 PO (14:28)
[2022-05-25] MEDS ORDERED: TOPUD MT (14:28)
[2022-05-25] MEDS ORDERED: LINA5TAB MT (14:29)
[2022-05-25 16:00] VITALS: BP 144/56
[2022-05-25] MEDS: ASPIRIN 81MG TABLET PO SCH (16:14)
[2022-05-25 16:46] LABS: INR 1.2; PROTHROMBIN TIME 12.4 sec (9.6-11.0)
[2022-05-25 17:41] VITALS: BP 121/38
[2022-05-25 20:00] VITALS: BP 109/56
[2022-05-25] MEDS ORDERED: VANCOMYCIN 750MG PREMIX 150 ML IV NR (21:00)
[2022-05-25 22:00] VITALS: BP 128/56
[2022-05-25] MEDS: ATORVASTATIN CALCIUM 40MG TABLET PO SCH (22:21)
[2022-05-26] VITALS (12 sets, daily range): BP systolic 98–128; BP diastolic 46–62
[2022-05-26] MEDS: GUAIFENESIN 200MG/10ML SUGAR FREE UDC PO SCH ×5 (00:31→17:05)
[2022-05-26] MEDS: PIPERACILLIN/TAZOBACTAM 3.375 G in DEXTROSE 5% WATER 50 ML IV SCH ×4 (00:31→22:18)
[2022-05-26 05:40] LABS: HEMATOCRIT. 34.7 % (42.0-52.0); MEAN CORPUSCULAR HEMOGLOBIN 29.5 pg (28.0-32.0); MEAN CORPUSCULAR VOLUME 93.2 fL (80.0-94.0); MEAN PLATELET VOLUME 7.9 fl (7.4-10.4); PLATELET 311 x1000/uL (130-400); RED BLOOD CELL COUNT 3.72 mill/uL (4.7-6.1); RED CELL DISTRIBUTION WIDTH 18.7 % (11.6-14.6)
[2022-05-26] MEDS: INSULIN LISPRO 100 UNITS/ML SUBCUT SCH ×7 (07:30→22:25)
[2022-05-26] MEDS: PANTOPRAZOLE SODIUM 40 MG/VIAL IV SCH (08:14)
[2022-05-26] MEDS: ASPIRIN 81MG TABLET PO SCH (08:15)
[2022-05-26] MEDS: BLOOD SUGAR DIAGNOSTIC STRIP TEST SCH ×4 (08:15→21:50)
[2022-05-26] MEDS: AZITHROMYCIN 500 MG TABLET PO SCH (08:15)
[2022-05-26] MEDS: CLOPIDOGREL 75MG TABLET PO SCH (08:15)
[2022-05-26] MEDS: SODIUM CHLORIDE 0.45% 1,000 ML IV SCH ×2 (08:18→16:49)
[2022-05-26] MEDS: MIDODRINE HCL 2.5MG TABLET PO SCH ×3 (08:25→17:05)
[2022-05-26] MEDS: IPRATROPIUM/ALBUTEROL 0.5-3(2.5)MG/3ML NEB HHN SCH ×3 (08:52→19:44)
[2022-05-26] MEDS ORDERED: ENOXAPARIN 100MG/ML SYR SUBCUT SCH (09:00)
[2022-05-26] MEDS: INSULIN GLARGINE 100 UNITS/ML SUBCUT SCH ×2 (10:00→22:26)
[2022-05-26] MEDS ORDERED: KCL 20MEQ/100ML PREMIX 100 ML IV NR (10:00)
[2022-05-26 17:05] LABS: PLATELET ESTIMATE NORMAL
[2022-05-26] MEDS: SODIUM HYPOCHLORITE 0.125% 473ML SOLUTION TOP SCH (18:46)
[2022-05-26] MEDS: ATORVASTATIN CALCIUM 40MG TABLET PO SCH (22:18)
[2022-05-27] VITALS (11 sets, daily range): BP systolic 12–151; BP diastolic 48–66
[2022-05-27] MEDS: IPRATROPIUM/ALBUTEROL 0.5-3(2.5)MG/3ML NEB HHN SCH ×3 (00:12→08:35)
[2022-05-27] MEDS: GUAIFENESIN 200MG/10ML SUGAR FREE UDC PO SCH ×4 (01:49→17:05)
[2022-05-27 06:06] LABS: PHOSPHORUS 2.6 mg/dL (2.5-4.9)
[2022-05-27 06:19] LABS: HEMATOCRIT. 29.7 % (42.0-52.0); HEMOGLOBIN. 9.5 g/dL (14.0-18.0); MEAN CORPUSCULAR HEMOGLOBIN 29.6 pg (28.0-32.0); MEAN CORPUSCULAR VOLUME 92.7 fL (80.0-94.0); MEAN PLATELET VOLUME 8.2 fl (7.4-10.4); PLATELET 272 x1000/uL (130-400); RED CELL DISTRIBUTION WIDTH 19.1 % (11.6-14.6)
[2022-05-27] MEDS: SODIUM CHLORIDE 0.45% 1,000 ML IV SCH (06:41)
[2022-05-27] MEDS: PIPERACILLIN/TAZOBACTAM 3.375 G in DEXTROSE 5% WATER 50 ML IV SCH ×3 (06:41→21:05)
[2022-05-27] MEDS: INSULIN LISPRO 100 UNITS/ML SUBCUT SCH ×7 (07:30→21:06)
[2022-05-27] MEDS: BLOOD SUGAR DIAGNOSTIC STRIP TEST SCH ×4 (08:15→21:00)
[2022-05-27] MEDS: AZITHROMYCIN 500 MG TABLET PO SCH (08:15)
[2022-05-27] MEDS: CLOPIDOGREL 75MG TABLET PO SCH (08:15)
[2022-05-27] MEDS: ASPIRIN 81MG TABLET PO SCH (08:15)
[2022-05-27] MEDS: SODIUM HYPOCHLORITE 0.125% 473ML SOLUTION TOP SCH (08:43)
[2022-05-27] MEDS: FAMOTIDINE 20MG/2ML VIAL IV SCH (08:45)
[2022-05-27] MEDS: ENOXAPARIN 80MG/0.8ML SYR SUBCUT SCH (08:46)
[2022-05-27] MEDS: MIDODRINE HCL 2.5MG TABLET PO SCH ×3 (08:48→16:30)
[2022-05-27] MEDS: INSULIN GLARGINE 100 UNITS/ML SUBCUT SCH ×2 (09:00→21:06)
[2022-05-27 14:07] LABS: PLATELET ESTIMATE NORMAL
[2022-05-27] MEDS ORDERED: POTASSIUM CHLORIDE 20MEQ/PACKET PO NR (15:45)
[2022-05-27] MEDS: ATORVASTATIN CALCIUM 40MG TABLET PO SCH (21:06)
[2022-05-27] MEDS: IPRATROPIUM BROMIDE (0.02%) 0.5MG/2.5ML NEB HHN SCH (21:35)
[2022-05-27] MEDS: ALBUTEROL (0.083%) 2.5MG/3ML NEB HHN SCH (21:36)
[2022-05-28] VITALS (8 sets, daily range): BP systolic 108–131; BP diastolic 47–67
[2022-05-28] MEDS: GUAIFENESIN 200MG/10ML SUGAR FREE UDC PO SCH ×3 (00:15→12:11)
[2022-05-28] MEDS: IPRATROPIUM BROMIDE (0.02%) 0.5MG/2.5ML NEB HHN SCH ×5 (00:40→16:18)
[2022-05-28] MEDS: ALBUTEROL (0.083%) 2.5MG/3ML NEB HHN SCH ×5 (00:41→16:18)
[2022-05-28] MEDS: PIPERACILLIN/TAZOBACTAM 3.375 G in DEXTROSE 5% WATER 50 ML IV SCH ×2 (05:42→14:59)
[2022-05-28] MEDS: BLOOD SUGAR DIAGNOSTIC STRIP TEST SCH ×2 (07:30→11:59)
[2022-05-28] MEDS: INSULIN LISPRO 100 UNITS/ML SUBCUT SCH ×3 (08:00→12:12)
[2022-05-28] MEDS: ENOXAPARIN 80MG/0.8ML SYR SUBCUT SCH (09:33)
[2022-05-28] MEDS: MIDODRINE HCL 2.5MG TABLET PO SCH ×2 (09:33→12:11)
[2022-05-28] MEDS: CLOPIDOGREL 75MG TABLET PO SCH (09:34)
[2022-05-28] MEDS: ASPIRIN 81MG TABLET PO SCH (09:34)
[2022-05-28] MEDS: FAMOTIDINE 20MG/2ML VIAL IV SCH (09:34)
[2022-05-28] MEDS: SODIUM HYPOCHLORITE 0.125% 473ML SOLUTION TOP SCH (09:34)
[2022-05-28 09:47] LABS: BASOPHILS % 0.3 % (0.0-2.0); EOSINOPHILS % 2.1 % (0.0-5.0); HEMATOCRIT. 25.6 % (42.0-52.0); HEMOGLOBIN. 8.2 g/dL (14.0-18.0); LYMPHOCYTES % 10.5 % (20.0-50.0); MEAN CORPUSCULAR HEMOGLOBIN 30.3 pg (28.0-32.0); MEAN CORPUSCULAR VOLUME 94.3 fL (80.0-94.0); MEAN PLATELET VOLUME 8.4 fl (7.4-10.4); MONOCYTES % 6.4 % (2.0-8.0); NEUTROPHILS % 80.7 % (40.0-76.0); PLATELET 223 x1000/uL (130-400); RED BLOOD CELL COUNT 2.71 mill/uL (4.7-6.1); RED CELL DISTRIBUTION WIDTH 18.8 % (11.6-14.6)
[2022-05-28] MEDS: INSULIN GLARGINE 100 UNITS/ML SUBCUT SCH (09:49)
[2022-05-28] MEDS ORDERED: MIDO2.5T PO (11:05)
[2022-05-28] MEDS ORDERED: PIPERACILLIN/TAZOBACTAM 3.375 G in DEXTROSE 5% WATER 50 ML IV SCH (21:00)
[2022-05-29] MEDS ORDERED: FAMOTIDINE 20MG TABLET PO SCH (09:00)
== END 2022-05-28 19:05 | disposition home or self-care (01) | DRG 871 ==
LOC: ER 17:48 → MICUSO 05-23 04:23 → EDBEDREQDT 05-23 04:45 → EDBEDREQTM 05-23 04:45 → EDBEDREQ 05-23 04:45 → EDBEDREQSVC 05-23 04:45 → 5EST 05-25 14:34
PROVIDERS: ADMIT Internal Medicine; ATTEND Internal Medicine
PROC: 05HM33Z Insertion of Infusion Device into Right Internal Jugular Vein, Percutaneous Approach (ICD-10-PCS; principal; 2022-05-23)
DX: A41.9 Sepsis, unspecified organism (principal); G93.41 Metabolic encephalopathy; R65.21 Severe sepsis with septic shock; J18.9 Pneumonia, unspecified organism; J96.01 Acute respiratory failure with hypoxia; N17.0 Acute kidney failure with tubular necrosis; I21.4 Non-ST elevation (NSTEMI) myocardial infarction; E44.0 Moderate protein-calorie malnutrition; E87.20 Acidosis, unspecified; J98.11 Atelectasis; R64 Cachexia; I69.351 Hemiplegia and hemiparesis following cerebral infarction affecting right dominant side; I42.9 Cardiomyopathy, unspecified; E11.65 Type 2 diabetes mellitus with hyperglycemia; E86.9 Volume depletion, unspecified; Z20.822 Contact with and (suspected) exposure to COVID-19; E87.5 Hyperkalemia; I12.9 Hypertensive chronic kidney disease with stage 1 through stage 4 chronic kidney disease, or unspecified chronic kidney disease; E11.22 Type 2 diabetes mellitus with diabetic chronic kidney disease; N18.9 Chronic kidney disease, unspecified; E78.5 Hyperlipidemia, unspecified; D63.1 Anemia in chronic kidney disease; E11.649 Type 2 diabetes mellitus with hypoglycemia without coma; E88.09 Other disorders of plasma-protein metabolism, not elsewhere classified; Z87.01 Personal history of pneumonia (recurrent); Z82.49 Family history of ischemic heart disease and other diseases of the circulatory system; Z96.641 Presence of right artificial hip joint; Z87.891 Personal history of nicotine dependence; Z79.02 Long term (current) use of antithrombotics/antiplatelets; Z68.27 Body mass index [BMI] 27.0-27.9, adult
CPT/HCPCS: 36415; 36600; 70551; 71045; 76770; 80048; 80053; 80202; 80320; 81003; 82010; 82375; 82550; 82553; 82805; 82962; 83036; 83605; 83735; 83880; 84100; 84145; 84484; 85025; 87070; 87426; 87804; 92610; 93005; 93306; 93970; 94640; 97162; 97166; 99291; A6261; C9113; J1650; J1815; J1940; J2370; J2543; J3370; J3480; J3490; J7030; J7060; J7070; J7608; G0480